=== PATIENT | male | born 1975 | race Caucasian/White ===

== ENCOUNTER → 2017-03-07 | Outpatient (CLI) | payer OTHER ==
--- NOTE | 2017-03-07 14:26 | KCIC ---
Examination: 3 views of the left knee HISTORY: History of left knee pain COMPARISON: None available FINDINGS: The alignment of the knee joint grossly appears unremarkable. Bipartite patella identified. There is no acute fracture or dislocation identified. Impression: 1. No acute osseous findings. 2. Bipartite patella. Electronically signed by: Shay Costello MD (03/07/2017 2:22 PM)
== END | disposition home or self-care (01) ==
LOC: KCIC 12:37
PROVIDERS: ATTEND Family Medicine
DX: S89.92XA Unspecified injury of left lower leg, initial encounter (principal); M25.462 Effusion, left knee; M25.862 Other specified joint disorders, left knee; X58.XXXA Exposure to other specified factors, initial encounter; Y93.89 Activity, other specified; Y92.89 Other specified places as the place of occurrence of the external cause; Y99.8 Other external cause status
CPT/HCPCS: 73562